=== PATIENT | female | born 1950 | race Caucasian/White ===

== ENCOUNTER → 2020-08-11 | Outpatient (CLI) | payer OTHER ==
[~2020-08-11] MED LIST: IBUPROFEN 600600 M1 PO; NORCO 5-325 TA1 EACH PO; T3/T4 COMPOUND
== END ==
LOC: CAT 10:50
PROVIDERS: ATTEND Family Medicine
DX: Z13.6 Encounter for screening for cardiovascular disorders (principal); I25.10 Atherosclerotic heart disease of native coronary artery without angina pectoris; E78.00 Pure hypercholesterolemia, unspecified